=== PATIENT | female | born 2000 ===

== ENCOUNTER 2020-08-13 11:22 | Outpatient (CLI) | payer OTHER ==
[2020-08-13 11:59] LABS: MICROSCOPIC INDICATED
[2020-08-13 11:59] LABS: BASOPHILS % (AUTO) 1 % (0-1); EOSINOPHILS % (AUTO) 1 % (1-7); LYMPHOCYTES % (AUTO) 13 % (22-44); MEAN CORPUSCULAR HEMOGLOBIN 29.9 pg (27.0-34.8); MEAN CORPUSCULAR HGB CONC 33.7 g/dL (32.4-35.8); MEAN PLATELET VOLUME 9.9 fL (7.4-10.4); MONOCYTES % (AUTO) 6 % (2-9); NEUTROPHILS % (AUTO) 80 % (42-75); PLATELET COUNT 183 x10^3/uL (130-400); RED BLOOD COUNT 4.34 x10^6/uL (3.82-5.3); RED CELL DISTRIBUTION WIDTH 13.2 % (9.6-15.2)
[2020-08-13 12:00] LABS: MD NO
[2020-08-13 12:09] LABS: ALANINE AMINOTRANSFERASE 21 U/L (12-78); ALBUMIN 2.4 g/dL (3.4-5.0); ANION GAP 7 mmol/L (5-15); CALCIUM 8.4 mg/dL (8.5-10.1); CHLORIDE 111 mmol/L (98-107); CREATININE 0.68 mg/dL (0.55-1.02)
[2020-08-13 12:12] LABS: ALKALINE PHOSPHATASE 146 U/L (45-117); BILIRUBIN, DIRECT < 0.1 mg/dL (0.1-0.2); BILIRUBIN,TOTAL 0.4 mg/dL (0.2-1.0)
[2020-08-13 12:15] LABS: CREATININE,URINE RANDOM 62.3 mg/dL
== END 2020-08-13 13:14 | disposition home or self-care (01) ==
LOC: LDOP 11:22
PROVIDERS: ATTEND Obstetrics & Gynecology
DX: O13.3 Gestational [pregnancy-induced] hypertension without significant proteinuria, third trimester (principal); Z3A.36 36 weeks gestation of pregnancy
CPT/HCPCS: 36415; 59025; 76819; 80053; 81001; 82248; 82570; 84156; 84550; 85025

== ENCOUNTER 2020-08-15 23:26 | Inpatient (IN) | payer OTHER ==
[~2020-08-15] VITALS: Ht 162.6 cm; Wt 83.2 kg
[2020-08-15] MEDS ORDERED: NEWBORN KIT ONE (23:55)
[2020-08-16] VITALS (7 sets, daily range): BP systolic 110–132; BP diastolic 76–84
[2020-08-16] MEDS ORDERED: FENTANYL PF 100 MCG/2ML IVPush PRN
[2020-08-16] MEDS ORDERED: TERBUTALINE 1 MG/ML, 1ML SQ PRN
[2020-08-16] MEDS ORDERED: OXYTOCIN 30U/ 0.9% NaCL 500ML 500 ML IV ONE
[2020-08-16] MEDS ORDERED: FENTANYL PF 100 MCG/2ML IV PRN
[2020-08-16] MEDS ORDERED: ONDANSETRON 2MG/ML, 2ML IVPush PRN
[2020-08-16] MEDS ORDERED: TERBUTALINE 1 MG/ML, 1ML IVPush PRN
[2020-08-16] MEDS ORDERED: CLINDAMYCIN PMX 900MG/50ML 50 ML IVPB SCH
[2020-08-16] MEDS ORDERED: ONDANSETRON 2MG/ML, 2ML ONE (00:06)
[2020-08-16] MEDS ORDERED: CLINDAMYCIN PMX 900MG/50ML 50 ML ONE (00:10)
[2020-08-16 00:28] LABS: BASOPHILS % (AUTO) 1 % (0-1); EOSINOPHILS % (AUTO) 1 % (1-7); LYMPHOCYTES % (AUTO) 18 % (22-44); MEAN CORPUSCULAR HEMOGLOBIN 30.2 pg (27.0-34.8); MEAN PLATELET VOLUME 10.1 fL (7.4-10.4); MONOCYTES % (AUTO) 7 % (2-9); NEUTROPHILS % (AUTO) 73 % (42-75); PLATELET COUNT 197 x10^3/uL (130-400); RED BLOOD COUNT 4.68 x10^6/uL (3.82-5.3); RED CELL DISTRIBUTION WIDTH 13.5 % (9.6-15.2)
[2020-08-16] MEDS ORDERED: PLEASE ENTER HEIGHT AND WEIGHT MC SCH (00:30)
[2020-08-16] MEDS ORDERED: FENTANYL PF 100 MCG/2ML ONE (00:30)
[2020-08-16 00:32] LABS: MD NO
[2020-08-16 00:37] LABS: ALANINE AMINOTRANSFERASE 21 U/L (12-78); ALBUMIN 2.6 g/dL (3.4-5.0); ANION GAP 9 mmol/L (5-15); BILIRUBIN, DIRECT 0.1 mg/dL (0.1-0.2); CALCIUM 8.3 mg/dL (8.5-10.1); CHLORIDE 108 mmol/L (98-107)
[2020-08-16 00:39] LABS: ALKALINE PHOSPHATASE 163 U/L (45-117); BILIRUBIN,TOTAL 0.4 mg/dL (0.2-1.0); TOTAL PROTEIN 6.6 g/dL (6.4-8.2)
[2020-08-16] MEDS ORDERED: FENTANYL/BUPIV./NS/PF 0 ML EPIDCONT ONE (01:17)
[2020-08-16] MEDS ORDERED: LIDOCAINE 1%, 20ML ONE ×2 (01:27→01:52)
[2020-08-16] MEDS ORDERED: MISOPROSTOL 200 MCG TABLET ONE (01:27)
[2020-08-16] MEDS ORDERED: MISOPROSTOL 200 MCG TABLET PR ONE (02:00)
[2020-08-16] MEDS ORDERED: ACETAMINOPHEN 325 MG TABLET PO PRN (02:30)
[2020-08-16] MEDS ORDERED: ONDANSETRON 2MG/ML, 2ML IV PRN (02:30)
[2020-08-16] MEDS ORDERED: CARBOPROST TROMETHAMINE 250 MCG/ML, 1ML IM PRN (02:30)
[2020-08-16] MEDS: OXYTOCIN 30U/ 0.9% NaCL 500ML 500 ML IV SCH ×3 (02:30→22:30)
[2020-08-16] MEDS ORDERED: OXYTOCIN 10 UNITS/ML, 1ML IM PRN (02:30)
[2020-08-16] MEDS ORDERED: SIMETHICONE 80 MG CHEW TAB PO PRN (02:30)
[2020-08-16] MEDS ORDERED: METHYLERGONOVINE 0.2 MG/ML IM PRN (02:30)
[2020-08-16] MEDS ORDERED: MISOPROSTOL 200 MCG TABLET PR PRN (02:30)
[2020-08-16] MEDS ORDERED: HYDROcodone/APAP 5/325 TABLET PO PRN ×2 (02:30)
[2020-08-16] MEDS: IBUPROFEN 600 MG TABLET PO PRN ×2 (09:21→22:03)
[2020-08-16] MEDS: PRENATAL VIT/IRON/FA 1 EACH TABLET PO SCH (09:21)
[2020-08-16] MEDS: DOCUSATE 100 MG CAPSULE PO PRN ×2 (09:21→22:03)
[2020-08-16 09:54] LABS: BASOPHILS % (AUTO) 1 % (0-1); EOSINOPHILS % (AUTO) 0 % (1-7); LYMPHOCYTES % (AUTO) 8 % (22-44); MEAN CORPUSCULAR HEMOGLOBIN 29.6 pg (27.0-34.8); MEAN CORPUSCULAR HGB CONC 33.4 g/dL (32.4-35.8); MEAN PLATELET VOLUME 9.3 fL (7.4-10.4); MONOCYTES % (AUTO) 7 % (2-9); NEUTROPHILS % (AUTO) 84 % (42-75); PLATELET COUNT 156 x10^3/uL (130-400); RED BLOOD COUNT 3.43 x10^6/uL (3.82-5.3); RED CELL DISTRIBUTION WIDTH 13.2 % (9.6-15.2)
[2020-08-16 10:13] LABS: MD NO
[2020-08-17 08:00] VITALS: BP 119/71
[2020-08-17] MEDS: DOCUSATE 100 MG CAPSULE PO PRN ×2 (08:15→19:40)
[2020-08-17] MEDS: PRENATAL VIT/IRON/FA 1 EACH TABLET PO SCH (08:15)
[2020-08-17] MEDS: OXYTOCIN 30U/ 0.9% NaCL 500ML 500 ML IV SCH ×3 (08:15→23:04)
[2020-08-17 19:38] VITALS: BP 122/81
[2020-08-18 07:18] VITALS: BP 110/83
[2020-08-18] MEDS: DOCUSATE 100 MG CAPSULE PO PRN (07:48)
[2020-08-18] MEDS: PRENATAL VIT/IRON/FA 1 EACH TABLET PO SCH (07:48)
[2020-08-18] MEDS ORDERED: IBUP-1222 PO (13:20)
[2020-08-18] MEDS ORDERED: HYDR-2214 PO (13:20)
[2020-08-18] MEDS ORDERED: SENN-190 PO (13:21)
== END 2020-08-18 13:42 | disposition home or self-care (01) | DRG 807 ==
LOC: LDOP 23:26 → LDIP 23:44 → 2NW 08-16 04:06
PROVIDERS: ADMIT Obstetrics & Gynecology; ATTEND Obstetrics & Gynecology
PROC: 10E0XZZ Delivery of Products of Conception, External Approach (ICD-10-PCS; principal; 2020-08-16)
PROC: 0KQM0ZZ Repair Perineum Muscle, Open Approach (ICD-10-PCS; 2020-08-16)
DX: O99.820 Streptococcus B carrier state complicating pregnancy (principal); Z37.0 Single live birth; Z3A.36 36 weeks gestation of pregnancy; O13.3 Gestational [pregnancy-induced] hypertension without significant proteinuria, third trimester; Z88.0 Allergy status to penicillin; O70.1 Second degree perineal laceration during delivery
CPT/HCPCS: 36415; 80053; 82248; 84550; 85025; 86592; 86850; 86900; 87635; G0378; J2405; J3010